=== PATIENT | female | born 2000 | race Caucasian/White ===

== ENCOUNTER 2024-02-13 20:32 | Emergency (ER) | payer OTHER, SELFPAY ==
[2024-02-13 20:33] VITALS: BP 135/72; PULSE 93; RESP 16; TEMP 36.7; O2SAT 100; BMI 27.2
--- NOTE | 2024-02-13 20:57 | CT_ITS ---
STUDY: CT Abdomen And Pelvis W/O Contrast Injection 02/13/2024 9:45 PM REASON FOR EXAM: Female, 23 years old. right flank PAIN Pain TECHNIQUE: Transaxial images were obtained without oral contrast, and without intravenous contrast. Individualized dose optimization techniques were used for this CT. COMPARISON: None FINDINGS: The visualized lung bases are unremarkable. The visualized portions of the heart are within normal limits. Unremarkable liver. Unremarkable gallbladder and extrahepatic biliary system. Unremarkable spleen. Unremarkable pancreas. Unremarkable bilateral adrenal glands. No acute findings of the right kidney. No acute findings of the left kidney. Unremarkable visualized stomach. Unremarkable small intestine. Unremarkable colon. The. 1 appendix is visualized and appears unremarkable. There are no acute findings of the abdominal aorta. Unremarkable inferior vena cava. Unremarkable urinary bladder. Normal visualized uterus. Unremarkable abdominal wall. Unremarkable osseous structures. CT/Abdomen/Pelvis without Cont IMPRESSION: (NOT LISTED IN ORDER OF SIGNIFICANCE) There are no acute findings. Other findings as above. Electronically Signed: Oz Guerrero MD at 21:47 EST Reading Location ID and State: [facility] / [place] , Service support ,
--- NOTE | 2024-02-13 20:58 | EDS_ITS ---
HPI HPI - GI History of Present Illness Chief Complaint: Abd Pain Narrative Narrative: 23-year-old female who denies significant past medical history except depression presents with right flank pain with sudden onset about an hour ago. She states she was walking on the treadmill and developed a pain that was in her right flank. It radiated downward and into her back. Sometimes it is a burning sensation and other times sharp and stabbing. She denies any exacerbating or alleviating factors. No recent fevers or chills, no nausea or vomiting. No dysuria or hematuria. Last normal bowel movement was today. She states she always has diarrhea but does not know why. Additionally, she states that on Wednesday of last week she took a Plan B, and has had small amount of vaginal bleeding since, but the pain in her right flank is higher. [facility] Medical History (Updated 02/13/24 @ 22:44 by Gautam Cruz MD) Depression Anxiety Home Medications ?Medication ?Instructions ?Recorded ?Last Taken ?Type fluoxetine 40 mg capsule 80 mg PO DAILY 02/13/24 Unknown History Allergy/AdvReac Type Severity Reaction Status Date / Time No Known Allergies Allergy Verified 02/13/24 20:33 Social History Smoking Status: Current every day smoker tobacco type: smokeless tobacco ROS ROS ED ROS Narrative Constitutional: No fever, no chills. Cardiovascular: No chest pain. No palpitations. No pedal edema. Respiratory: No cough, no shortness of breath. Abdominal: Right flank/abdominal pain. No nausea. No vomiting. No problems with bowel movements. Genitourinary: No dysuria. No hematuria. Musculoskeletal: No myalgias. No arthralgias. Neurologic: No headaches. No dizziness. No lightheadedness. Psychiatric: No depression. No anxiety. EXAM Physical Exam Narrative Exam Narrative: Afebrile. Vital signs noted. Nontoxic-appearing. Able to ambulate to bathroom. Cardiovascular examination reveals a regular rate and rhythm. Lungs are clear to auscultation bilaterally. Abdomen is soft with minimal diffuse tenderness to palpation in the right flank area. Negative Valenzuela sign. No guarding or rebound. No pain over McBurney's point. Positive bowel sounds. Neurological examination is nonfocal and nonlateralizing. Mildly tearful on examination. Const Vital Signs: 02/13/24 20:33 Temperature 98.1 F Temperature Source Oral Pulse Rate 93 Respiratory Rate 16 Blood Pressure 135/72 H Blood Pressure Mean 93 Pulse Ox 100 Oxygen Delivery Method Room Air MDM MDM MDM Narrative Medical decision making narrative: Differential diagnosis does include but not limited to ureterolithiasis versus pyelonephritis versus diverticulitis versus acute appendicitis versus ovarian cyst. I have very low suspicion clinically for acute appendicitis. Her pain started suddenly about an hour ago while she was walking on the treadmill. Comprehensive workup was pursued. I do feel imaging is indicated but I do not feel she requires IV contrast because I have a low suspicion for an acute appendicitis. I reviewed her laboratory work and she has normal white count of 10.2, hemoglobin 13.8 with hematocrit 41.5, platelet count normal at 233. Potassium slightly low at 3.3 which I think is nonspecific and this was replaced orally with 40 mEq. BUN 15 and creatinine 1.0. Glucose 92. Urine is negative. Urinalysis negative for infection with 0-5 white cells. I do not feel antibiotics are indicated. CT of the abdomen and pelvis obtained without contrast. There is no acute process. Upon repeat examination at approximately 2240, she is resting in bed comfortably. She states she feels minimally improved if not the same. She will be given Toradol intravenously. At this point in time, I feel she probably has more of a nonspecific abdominal pain/flank pain. Her mother is present at the bedside. I feel she can be discharged to follow-up with her primary care provider. Return instructions to the emergency department were reviewed. Disposition is discharged home in stable condition. History & Record Review Discussion w/independent historian: Patient Lab Data Attestation: I reviewed the patient's lab results. Labs: Laboratory Results - last 24 hr 02/13/24 02/13/24 21:00 21:08 WBC 10.2 RBC 4.60 Hgb 13.8 Hct 41.5 MCV 90.2 MCH 30.0 MCHC 33.3 RDW Std Deviation 41.5 RDW Coeff of Dunia 12.6 Plt Count 233 MPV 11.0 Immature Gran % (Auto) 0.400 Neut % (Auto) 70.7 H Lymph % (Auto) 18.5 L Surry % (Auto) 8.1 Eos % (Auto) 2.0 Baso % (Auto) 0.3 Absolute Neuts (auto) 7.2 Absolute Lymphs (auto) 1.89 Nucleated RBC % 0 Sodium 138 Potassium 3.3 L Chloride 105 Carbon Dioxide 25.0 Anion Gap 8 BUN 15 Creatinine 1.03 H Estim Creat Clear Calc 82.63 Est GFR (MDRD) Af Amer 85 Est GFR (MDRD) Non-Af 70 BUN/Creatinine Ratio 14.6 Glucose 92 Calcium 9.8 Total Bilirubin 0.50 AST 18 ALT 25 Alkaline Phosphatase 69 Total Protein 8.3 H Albumin 4.6 Globulin 3.7 Albumin/Globulin Ratio 1.2 Lipase 31 Urine Color Yellow Urine Clarity Clear Urine pH 6.5 Ur Specific Tamiment 1.010 Urine Protein Negative Urine Glucose (UA) Normal Urine Ketones Negative Urine Occult Blood 250 H Urine Nitrite Negative Urine Bilirubin Negative Urine Urobilinogen Normal Ur Leukocyte Esterase 25 H Urine RBC 0-5 SEEN Urine WBC 0-5 SEEN Ur Squamous Epith Cells 0-5 SEEN Urine Bacteria 0 SEEN Urine Mucus 0 SEEN Urine Test Negative Radiography Diagnostic Testing: Clinical Impression(s) from Imaging Studies Abdomen/Pelvis CT 02/13/24 20:57 IMPRESSION: (NOT LISTED IN ORDER OF SIGNIFICANCE) There are no acute findings. Other findings as above. Electronically Signed: Oz Guerrero MD at 21:47 EST Reading Location ID and State: [facility] / [place] , Service support , Discharge Plan Triage Chief Complaint: Abd Pain ED Provider: Gautam Cruz Dx/Rx/DC Orders Clinical Impression: Abdominal pain, Right flank pain, Hypokalemia Instructions: ED Abdominal Pain Unkn Cause Fem, ED Flank Pain, Uncertain Cause, ED Hypokalemia Prescriptions: No Action fluoxetine 40 mg capsule 80 mg PO DAILY Primary Care Provider: Alfredo Valencia Referrals: Alfredo Valencia MD [Primary Care Provider] - 3-5 Days if not improving Activity Restrictions/Additional Instructions: Return to the emergency department with fever, increased pain, nausea and vomiting, new or worsening symptoms. Print Language: Argentine Disposition Disposition: Home, Self Care
[2024-02-13 21:05] LABS: Bacteria 0 SEEN /hpf (None Seen); Mucous, Urine 0 SEEN /hpf (<or=2+)
[2024-02-13 21:12] LABS: Color, Urine Yellow (Yellow); Glucose, Dipstick Normal (Normal); Ketone-Dipstick Negative (Negative); Leukocyte Esterase-Dipstick 25 /ul (Negative); Nitrite-Dipstick Negative (Negative); Occult Blood-Urine 250 /ul (Negative); Protein-Dipstick Negative (Negative); Urine Bilirubin Dipstick Negative (Negative); Urine Clarity Clear (Clear); Urine Urobilinogen Normal (Normal); Urine pH 6.5 (5.0 - 8.0)
[2024-02-13 21:16] LABS: Absolute Lymphocyte Count 1.89 X10^3/uL (0.83-4.51); Absolute Neutrophil Count 7.2 X10^3/uL (2.0-7.7); Basophil# 0.03 X10^3/uL; Basophil% 0.3 % (0-1); Hematocrit 41.5 % (37-47); Hemoglobin 13.8 g/dL (12.0-15.0); Lymphocyte # 1.89 X10^3/ul (0.83-4.51); Lymphocyte % 18.5 % (19-41); Mean Corp Hgb Conc 33.3 g/dL (32-36); Mean Corpuscular Volume 90.2 fL (81-99); Monocyte# 0.83 X10^3/uL; Monocyte% 8.1 % (0-10); NRBC Flagged by Analyzer 0 % (0-5); Neutrophil % 70.7 % (47-70); Platelet Count 233 K/mm3 (150-450); RBC Distribution Width CV 12.6 % (11.6-14.6); RBC Distribution Width SD 41.5 fl (35.1-43.9); White Blood Count 10.2 K/mm3 (4.4-11.0)
[2024-02-13 21:24] LABS: Internal QC Validated? YES +Cl - CLEAR BKGD; Pregnancy, Urine Negative Negative; Red Blood Cells-Urine 0-5 SEEN /hpf (0-5); Squamous Epithelial Cells - UA 0-5 SEEN /hpf (5-10); White Blood Cells 0-5 SEEN /hpf (0-5)
[2024-02-13 21:30] LABS: ALB/GLOB Ratio 1.2 RATIO (0.9-2.4); AST(SGOT) 18 U/L (15-37); Alanine Aminotransfer ALT/SGPT 25 U/L (13-56); Albumin, Serum 4.6 g/dL (3.2-5.0); Alkaline Phosphatase 69 U/L (45-117); Anion Gap 8 (5-15); BUN 15 mg/dL (7-18); BUN/Creat Ratio 14.6 RATIO (10-20); Calcium,Total 9.8 mg/dL (8.5-10.1); Chloride 105 mmol/L (98-107); Creatinine, Serum 1.03 mg/dL (0.55-1.02); EST Glomerular Filtration Rate 70 mL/min (>60); Est Glom Filt Rate - Afr Amer 85 mL/min (>60); Estimated Creatinine Clearance 82.63 ml/min; Globulin 3.7 g/dL (2.2-4.2); Glucose 92 mg/dL (74-106); Lipase 31 U/L (13-75); Potassium 3.3 mmol/L (3.5-5.1); Protein, Total 8.3 g/dL (6.4-8.2); Sodium Level 138 mmol/L (136-145)
[2024-02-13] MEDS: Potassium Chloride Oral Tablet 20 MEQ 40 MEQ PO (22:50)
[2024-02-13] MEDS: Ketorolac 15 MG/ML Vial IV (22:50)
== END 2024-02-13 22:57 | disposition home or self-care (01) ==
PROVIDERS: Emergency Provider Emergency Medicine; PCP Family Medicine; Visit Provider Emergency Medicine
DX: R10.9 Unspecified abdominal pain (principal); E87.6 Hypokalemia; F17.220 Nicotine dependence, chewing tobacco, uncomplicated
CPT/HCPCS: 74176; 80053; 81001; 81025; 83690; 85025; 96374; 99283; A4216